=== PATIENT | female | born 1985 | race Caucasian/White ===

== ENCOUNTER 2020-12-24 16:58 | Emergency (ER) | payer OTHER ==
[~2020-12-24] VITALS: Ht 162.6 cm; Wt 90.7 kg
[2020-12-24 17:18] VITALS: BP 139/89
[2020-12-24] MEDS ORDERED: KEFLEX250 MG PO (17:32)
[2020-12-24] MEDS ORDERED: COMPAZINE10 M2 PO (17:32)
[2020-12-24] MEDS ORDERED: CLONIDINE HCL0.1 M1 PO (17:32)
[2020-12-24] MEDS ORDERED: IBUPROFEN 800800 MG PO (17:32)
== END 2020-12-24 18:14 | disposition home or self-care (01) ==
LOC: ER 16:58
DX: L03.114 Cellulitis of left upper limb (principal); L02.414 Cutaneous abscess of left upper limb; F11.10 Opioid abuse, uncomplicated

== ENCOUNTER 2021-09-01 13:35 | Emergency (ER) | payer OTHER ==
[~2021-09-01] VITALS: Ht 162.6 cm; Wt 99.8 kg
[~2021-09-01 13:35] MED LIST: CLONIDINE HCL0.1 M1 PO; COMPAZINE10 M2 PO; IBUPROFEN 800800 MG PO; KEFLEX250 MG PO
== END 2021-09-01 15:35 ==
LOC: ER 13:35
PROVIDERS: Emergency Medicine
DX: U07.1 COVID-19 (principal)